=== PATIENT | female | born 1955 | race Asian ===

== ENCOUNTER 2021-08-31 10:18 | Outpatient (CLI) | payer MEDICARE | END 2021-08-31 10:19 | disposition home or self-care (01) | LOC: TBSIIMAG 10:18 | PROVIDERS: ATTEND Neurological Surgery | DX: M54.16 Radiculopathy, lumbar region (principal); M48.061 Spinal stenosis, lumbar region without neurogenic claudication; M48.07 Spinal stenosis, lumbosacral region | CPT/HCPCS: 72148 ==

== ENCOUNTER 2022-12-31 08:57 | Outpatient (CLI) | payer OTHER, MEDICAID | END 2022-12-31 08:58 | disposition home or self-care (01) | LOC: SCSMRI 08:57 | PROVIDERS: ATTEND Neurological Surgery | DX: M47.22 Other spondylosis with radiculopathy, cervical region (principal) | CPT/HCPCS: 72141 ==